=== PATIENT | male | born 1955 | race Caucasian/White ===

== ENCOUNTER → 2017-06-01 | Outpatient (CLI) | payer OTHER ==
--- NOTE | 2017-06-04 12:55 | RADRPT ---
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 TECHNIQUE: Following the intravenous injection of 6.3 mCi of Indium-111 labeled pentreotide, anteri or and posterior whole body planar images were obtained at 72 hours post injection. In addition, SPE CT images and spot views to of the abdomen and pelvis were performed. COMPARISON: No prior studies. FINDINGS: No abnormal areas of increased activity noted in the study, including head and neck region, chest, a bdomen, pelvis and visualized portions of the upper and lower extremities bilaterally. Physiologic activity seen in the thyroid gland, liver, spleen, kidneys and bowel. IMPRESSION: No abnormal areas of increased activity. RPTAT: HH .Mary Dhillon MD, MD Date Time Electronically viewed and signed by .Mary Dhillon MD, on 06/04/2017 12:55 .L/
== END | disposition home or self-care (01) ==
LOC: NUC 08:16
PROVIDERS: ATTEND Nurse Practitioner
DX: D3A.00 Benign carcinoid tumor of unspecified site (principal)
CPT/HCPCS: 78306; A9503